=== PATIENT | female | born 1985 | race Caucasian/White ===

== ENCOUNTER → 2020-05-27 09:13 | Outpatient (BNVA) | payer BC, SELFPAY | PROVIDERS: Family Provider Registered Nurse; PCP Nurse Practitioner Family; Visit Provider Registered Nurse | DX: N92.6 Irregular menstruation, unspecified (principal); N94.10 Unspecified dyspareunia; Z01.419 Encounter for gynecological examination (general) (routine) without abnormal findings; K21.9 Gastro-esophageal reflux disease without esophagitis | CPT/HCPCS: 87070; 87205; 88175 ==

== ENCOUNTER → 2020-05-28 15:19 | Outpatient (BNVA) | payer BC, SELFPAY | PROVIDERS: Family Provider Registered Nurse; PCP Nurse Practitioner Family; Visit Provider Registered Nurse | DX: N92.6 Irregular menstruation, unspecified (principal) | CPT/HCPCS: 84443; 85025 ==

== ENCOUNTER 2020-06-19 13:25 | Outpatient (CLI) | payer BC, SELFPAY ==
--- NOTE | 2020-06-19 13:30 | US_ITS ---
WS: [id number] TRANSVAGINAL PELVIC ULTRASOUND HISTORY: N94.10 - Unspecified dyspareunia COMPARISON: None available. Uterus: 8.5 cm x 4.5 cm x 4.9 cm. Normal size retroverted uterus. No fibroid or mass. Endometrium: 0.2 cm. Thin atrophic appearing endometrium. Right ovary: 4.3 cm x 4.7 cm x 3.5 cm. RIGHT ovary is slightly enlarged secondary to a simple cyst me asuring 3.2 x 3.4 x 2.8 cm. Normal vascularity in the adjacent ovarian tissue. Left ovary: 3.6 cm x 2.2 cm x 2.8 cm. Small follicles. Normal vascularity. No free fluid. US/US transvaginal [id number] IMPRESSION: 1. Small simple RIGHT ovarian cyst measuring 3.2 x 3.4 x 2.8 cm. 2. Retroverted uterus. 3. Mildly atrophic endometrium.
== END 2020-06-19 13:26 | disposition home or self-care (01) ==
LOC: US 13:26
PROVIDERS: PCP Nurse Practitioner Family; Visit Provider Registered Nurse
DX: N94.10 Unspecified dyspareunia (principal); N83.291 Other ovarian cyst, right side; Q51.818 Other congenital malformations of uterus; N85.8 Other specified noninflammatory disorders of uterus
CPT/HCPCS: 76830

== ENCOUNTER → 2020-07-07 10:17 | Outpatient (BNVA) | payer BC, SELFPAY | PROVIDERS: PCP Nurse Practitioner Family; Visit Provider Obstetrics & Gynecology | DX: F41.1 Generalized anxiety disorder (principal); N92.6 Irregular menstruation, unspecified | CPT/HCPCS: 83001; 84146; 84702 ==

== ENCOUNTER 2021-06-03 12:00 | Outpatient (CLI) | payer OTHER, SELFPAY ==
--- NOTE | 2021-06-03 12:45 | USCV_ITS ---
Britt Saavedra Age: 35 Gender: F : 1985 Exam Date: 06/03/2021 12:27 Ordering Phys: Chuck Shanks DIRECTOR [employer] Technologist: PENELOPE Exam Location: [facility] – [place] Indication: Leg pain / swelling HISTORY: Leg pain / swelling PROCEDURES: Venous duplex imaging was performed in only the left lower extremity. The following venous structures were evaluated: common femoral vein, profunda vein, proximal portion of the greater saphenous vein, superficial femoral vein, and the popliteal vein. In addition, the posterior tibial and peroneal trunk were evaluated. Serial compression, augmentation maneuvers, and spectral Doppler flow evaluation were performed. FINDINGS: Normal 2-D Doppler and augmentation and compressibility throughout the lower extremity venous structures. Additional imaging through the proximal calf veins also reveals no thrombus. Limited evaluation of the greater saphenous vein is patent with no thrombus. CONCLUSIONS No DVT left lower extremity. Dr. Kathleen Kelly DO (Electronically Signed) Final Date: 03 June 2021 13:11 S
== END 2021-06-03 12:01 | disposition home or self-care (01) ==
PROVIDERS: PCP Registered Nurse; Visit Provider Registered Nurse
DX: M79.605 Pain in left leg (principal); M79.89 Other specified soft tissue disorders
CPT/HCPCS: 93971

== ENCOUNTER 2021-08-25 10:00 | Outpatient (CLI) | payer OTHER, SELFPAY | END 2021-08-25 10:01 | disposition home or self-care (01) | LOC: SLEEP 08-26 10:30 | PROVIDERS: PCP Registered Nurse; Visit Provider Registered Nurse | DX: I10 Essential (primary) hypertension (principal); G47.33 Obstructive sleep apnea (adult) (pediatric) | CPT/HCPCS: G0399 ==

== ENCOUNTER 2021-11-16 20:00 | Outpatient (CLI) | payer OTHER, SELFPAY | END 2021-11-16 20:01 | disposition home or self-care (01) | LOC: SLEEP 11-17 06:33 | PROVIDERS: PCP Registered Nurse; Visit Provider Registered Nurse | DX: G47.30 Sleep apnea, unspecified (principal) | CPT/HCPCS: 95811 ==

== ENCOUNTER → 2022-08-23 09:11 | Outpatient (BNVA) | payer BC, SELFPAY | PROVIDERS: PCP Registered Nurse; Visit Provider Registered Nurse | DX: Z00.00 Encounter for general adult medical examination without abnormal findings (principal); I10 Essential (primary) hypertension; Z99.89 Dependence on other enabling machines and devices | CPT/HCPCS: 80053; 80061; 84443; 85025 ==

== ENCOUNTER → 2023-08-31 09:54 | Outpatient (BNVA) | payer BC, SELFPAY | PROVIDERS: PCP Registered Nurse; Visit Provider Registered Nurse | DX: Z01.419 Encounter for gynecological examination (general) (routine) without abnormal findings (principal); N94.10 Unspecified dyspareunia; R10.2 Pelvic and perineal pain; G89.29 Other chronic pain | CPT/HCPCS: 87624 ==

== ENCOUNTER → 2024-02-01 08:56 | Outpatient (BNVA) | payer BC, SELFPAY | PROVIDERS: PCP Registered Nurse; Visit Provider Registered Nurse | DX: I10 Essential (primary) hypertension (principal) | CPT/HCPCS: 80053; 80061; 85025 ==

== ENCOUNTER → 2025-03-06 10:10 | Outpatient (BNVA) | payer BC, SELFPAY | PROVIDERS: PCP Registered Nurse; Visit Provider Registered Nurse | DX: I10 Essential (primary) hypertension (principal) | CPT/HCPCS: 80053; 80061; 85025 ==

== ENCOUNTER 2025-03-21 06:12 | Outpatient (CLI) | payer BC, SELFPAY ==
--- NOTE | 2025-03-21 06:29 | USCV_ITS ---
Britt Gonzalez Age: 39 Gender: F : 1985 Exam Date: 03/21/2025 06:33 Ordering Phys: Chuck Shanks Technologist: LYLA [place] [facility] [place]: HTN Aortic Velocity @ SMA (cm/s) 92.2 RIGHT KIDNEY LEFT KIDNEY Velocity (cm/s) Velocity (cm/s) Sys/Felix Sys/Felix Resistive Index Resistive Index 94.8 / 35.5 0.62 Proximal Renal Artery 103.1 / 37.2 0.64 89.1 / 32.2 0.58 Mid Renal Artery 91.5 / 31.6 0.66 109.6 / 34.6 0.68 Distal Renal Artery 86.8 / 27.7 0.68 82.9 / 32.6 0.61 Hilar 76.1 / 31.3 0.59 25.6 / 7.5 0.71 Upper Pole 31.6 / 14.0 0.56 21.2 / 6.7 0.68 Mid Pole 35.4 / 13.7 0.61 41.6 / 18.8 0.55 Lower Pole 38.6 / 17.2 0.55 1.19 Renal Aortic Ratio 1.11 Accleration Time (sec) 419.30 Hilar 455.70 212.00 Upper Pole 250.60 103.60 Mid Pole 159.30 222.80 Lower Pole 98.80 12.6 Kidney Length (cm) 12.1 FINDINGS No evidence of abdominal aortic aneurysm. There is no evidence of hemodynamically significant right renal artery stenosis. There is no evidence of hemodynamically significant left renal artery stenosis. CONCLUSIONS No sonographic evidence of renal aortic stenosis or aneurysm. Dr. Kathleen Kelly DO (Electronically Signed) Final Date: 21 March 2025 07:18 S
== END 2025-03-21 06:13 | disposition home or self-care (01) ==
LOC: RAD 06:16
PROVIDERS: PCP Registered Nurse; Visit Provider Registered Nurse
DX: I10 Essential (primary) hypertension (principal)
CPT/HCPCS: 93975